=== PATIENT | male | born 1970 | race Caucasian/White ===

== ENCOUNTER 2025-03-10 10:20 | Emergency (ER) | payer MEDICAID, SELFPAY ==
[2025-03-10 10:27] VITALS: BP 136/71; PULSE 96; RESP 20; TEMP 36.8; O2SAT 96; BMI 21.3
--- NOTE | 2025-03-10 10:49 | ED.GENADULT ---
HPI - General Adult General Date Seen: 03/10/25 Chief complaint: GI Bleed Stated complaint: Rectal bleed Time Seen by Provider: 03/10/25 10:34 History of Present Illness HPI narrative: 54-year-old male presenting to the ER today with 2 week history of bloody and sticky drainage from his rectum with bowel movements. He has no old records in the [place] system. According to [facility] care link.... 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 He has not seen the [facility] clinic in a few years. He now follows with a clinic in [place] call the [facility] which manages his primary care and provides his methadone refills. He has been stable on methadone with no recent changes. He notes that he started having a little bit of rectal bleeding and purulent drainage probably a couple of months ago actually. It sounds like it was initially intermittent and not very painful and was occurring typically after bowel movements. For the past couple of weeks he has noted increased volume of slimy drainage from his rectum and sometimes also some blood-tinged drainage. He notes that he was having pain with bowel movements for a week or 2 but now has not had any BM for about 7 days. Despite that he continues to have small volume slimy and bloody discharge from his rectum. He has been putting tissues in his pants because if he does not, the fluid drains onto his underwear. 5 of he is not having any anterior abdominal pain. No fever but did have some chills a few days ago. No known rectal trauma. He has no history of any rectal surgeries or hemorrhoids. No history of Crohn's. He does recall that he had a colonoscopy done about 10 15 years ago that might have shown a colon polyp. Unclear why he had a colonoscopy at age 40. Related Data Home Medications ?Medication ?Instructions ?Recorded ?Confirmed mecobalamin (vitamin B12) .ROUTE 03/10/25 methadone .ROUTE 03/10/25 Allergies Allergy/AdvReac Type Severity Reaction Status Date / Time No Known Drug Allergies Allergy Verified 03/10/25 12:05 Exam Narrative: Exam Narrative: Constitutional: Appears well-developed and well-nourished. Alert. Conversant, but anxious and pressured speech. I think he is very embarrassed about his presenting complaint. He is otherwise very polite and cooperative.. Non toxic. HENT: Head: Atraumatic. Nose: Nose normal. Mouth/Throat: Oral mucosa is clear and moist. no trismus. Eyes: Conjunctivae normal. EOM normal. Pupils equal, round, and reactive to light. No scleral icterus. Neck: Normal range of motion. Neck supple. No tracheal deviation present. Cardiovascular: Normal rate, regular rhythm. No gallop. No friction rub. No murmur heard. Symmetric radial artery pulses Pulmonary/Chest: Effort normal. No stridor. No respiratory distress. No wheezes. No rales. No rhonchi . No tenderness. Abdominal: Soft. Bowel sounds normal. No distension. No mass. No tenderness. No rebound. No guarding. Rectal exam. Performed in the right lateral decubitus position he does have a roughly 2-3 zinc cm area of scabbed scaly skin on the left buttock that is about 4 5 cm distant from the external anus. No surrounding erythema. No drainage from that area. Unclear if this could be a scabbed healing fistula, versus pressure sore, verses other skin thickening such as malignancy. He does have a small volume of pink tinged slimy fluid around the rectal opening. This was wiped away using a tissue. Gluteal cleft looks normal. I do not see any evidence for pilonidal abscess. He does have tenderness at the external anal opening without any clear mass or abscess there. No obvious external hemorrhoid or fissure. Digital rectal exam deferred because of patient discomfort. Musculoskeletal: RUE: Normal range of motion. No tenderness. No deformity LUE: Normal range of motion. No tenderness. No deformity RLE: Normal range of motion. No edema. No tenderness. No deformity LLE: Normal range of motion. No edema. No tenderness. No deformity Lymph: No inguinal adenopathy. Neurological: Alert and oriented to person, place, and time. Normal strength. CN II-VII intact. No sensory deficit. GCS eye subscore is 4. GCS verbal subscore is 5. GCS motor subscore is 6. Normal coordination Skin: Skin is warm and dry. No rash noted. No pallor. Normal capillary refill. Psychiatric: Normal mood. Normal affect. Const: Vital Signs, click to edit/add: Vital Signs - 24 hr 03/10/25 10:27 03/10/25 13:14 03/10/25 13:15 Temperature 98.2 F Pulse Rate 71 71 Pulse Rate [Pulse Oximeter] 96 Respiratory Rate 20 Blood Pressure 113/71 Blood Pressure [Ri ght Upper Arm] 136/71 Pulse Oximetry 96 98 97 Oxygen Delivery Me thod Room Air 03/10/25 13:16 Temperature Pulse Rate 72 Pulse Rate [Pulse Oximeter] Respiratory Rate Blood Pressure 115/67 Blood Pressure [Ri ght Upper Arm] Pulse Oximetry 98 Oxygen Delivery Me thod Course Course ED Course: Recheck-back from CT. Stable. Not having too much pain but still having some ongoing drainage. Needed to change his tissue. Recheck-discussed CT findings with radiologist. They do confirm that there probably is a fistula there. Recheck-discussed with General surgery, Dr. Gamboa. She reviewed imaging and clinical presentation. She would agree with starting the patient on antibiotics and advises consultation with Colorectal surgery, either from [place] where the [facility]. She feels that rectal fistula would be best managed by colorectal surgeon. We did place a phone consult request through the a line access center to colorectal surgery. Recheck-3:00 p.m.. Patient came out of his room to ask if he could leave. 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 We have not yet been able to contact colorectal surgery to help arrange and assure follow-up. However the patient cannot waiting longer. I will provide him with the phone clinic number for the colorectal surgery office and he will call them today to arrange a follow-up visit. We also discussed his intl findings of dilated common bile duct and of pulmonary nodules. He does not currently have a primary care provider but he will call the [facility] to arrange PCP and arrange follow-up imaging with repeat chest CT in 6 months and follow-up imaging for his bile duct. Precautions for return to the ER reviewed. Vital Signs Vital signs: Initial Vital Signs Temperature 98.2 F 03/10/25 10:27 Temperature Source Temporal Artery Scan 03/10/25 10:27 Pulse Rate 96 03/10/25 10:27 Respiratory Rate 20 03/10/25 10:27 Blood Pressure 136/71 03/10/25 10:27 Blood Pressure Mean 92 03/10/25 10:27 Blood Pressure Position Sitting 03/10/25 10:27 Pulse Oximetry 96 03/10/25 10:27 Oxygen Delivery Method Room Air 03/10/25 10:27 Vital Signs Temperature 98.2 F 03/10/25 10:27 Pulse Rate 96 03/10/25 10:27 Respiratory Rate 20 03/10/25 10:27 Blood Pressure 136/71 03/10/25 10:27 Pulse Oximetry 96 03/10/25 10:27 Oxygen Delivery Method Room Air 03/10/25 10:27 Temperature 98.2 F 03/10/25 10:27 Pulse Rate 72 03/10/25 13:16 Respiratory Rate 20 03/10/25 10:27 Blood Pressure 115/67 03/10/25 13:16 Pulse Oximetry 98 03/10/25 13:16 Oxygen Delivery Method Room Air 03/10/25 10:27 Medical Decision Making MDM Narrative Medical decision making narrative: Pleasant 54-year-old gentleman presenting to the ER today with a few weeks of rectal pain and intermittent mucousy/bloody discharge from the rectum. Differential is broad including upper and lower sources of GI bleeding such as AVM, tumor, gastritis, peptic ulcer disease, variceal. On clinical presentation I am more concerned about bleeding from the perirectal area itself. I do not see any clear evidence for thrombosed external hemorrhoids or fissures. There is a small amount of bloody mucousy discharge. I am concerned that he may have a perirectal abscess or fistula, or proctitis/colitis affecting his distal colon. He is hemodynamically stable. White count is normal at 5. Hemoglobin is 13.1. With several weeks of slow drainage, I do not think is rapidly exsanguinating or that he needs to be admitted for serial hemoglobin monitoring. Platelet count is mildly low at 121. He is not anticoagulated or on any anti-platelet agents. CT imaging shows evidence suspicious for a possible perirectal fistula. Discussed with our general surgeon who recommends consultation with Colorectal surgery. Patient need leave the ER before we could complete that consult process of the a line access center. CT scan also has multiple other incidental findings. He has a dilated common bile duct up to 10 mm. He is not having any anterior or right upper abdominal pain. LFTs and lipase are reassuring. Recommend outpatient follow-up. CT also shows pulmonary nodules. Discussed with the patient. Clinical impression. O 1. Perirectal fistula 2. Dilated common bile duct 3. Pulmonary nodules Lab Data Labs: Lab Results 03/10/25 03/10/25 Range/Units 12:12 13:27 WBC 5.80 (4.50-11.00) K/uL RBC 3.74 L (4.30-5.90) m/uL Hgb 13.1 L (13.5-17.5) gm/dL Hct 38.8 (37.0-53.0) % MCV 104 H (80-100) fL MCH 35 H (26-34) pg MCHC 34 (32-36) gm/dL RDW Coeff of Bhavani 14.8 (11.5-15.5) % Plt Count 121 L (140-440) K/uL Neut % (Auto) 75.1 H (42.0-72.0) % Lymph % (Auto) 13.6 L (20-44) % [place] % (Auto) 9.7 (0.0-11.0) % Eos % (Auto) 1.4 (0.0-7.0) % Baso % (Auto) 0.0 (0.0-3.0) % Neut # (Auto) 4.40 (1.7-7.0) K/uL Lymph # (Auto) 0.80 L (0.90-2.90) K/uL [place] # (Auto) 0.60 (0.00-0.90) K/UL Eos # (Auto) 0.08 (0.00-0.50) K/uL Baso # (Auto) 0.00 (0.00-0.30) K/uL Abs Immat Gran (auto) 0.01 (0.00-0.30) K/uL Imm/Tot Granulo (auto) 0.2 % Diff Slide Review Acceptable Review (Acceptable) Sodium 139 (135-149) mmol/L Potassium 3.9 (3.6-5.1) mmol/L Chloride 104 (96-114) mmol/L Carbon Dioxide 25 (20-32) mmol/L Anion Gap 10 (7-15) mEq/L BUN 18 (7-30) mg/dL Creatinine 0.7 (0.5-1.5) mg/dL Estimated Creat Clear 139.32 Estimated GFR 110 ml/min Glucose 89 (60-115) mg/dL Lactate 2.5 H (0.5-1.9) mmol/L Calcium 8.9 (8.4-10.6) mg/dL Total Bilirubin 1.0 (0.1-1.5) mg/dL Direct Bilirubin 0.5 (0.0-0.5) mg/dL AST 44 H (12-35) U/L ALT 14 (4-50) U/L Alkaline Phosphatase 84 (40-150) U/L Total Protein 6.8 (6.0-8.3) g/dL Albumin 4.4 (3.3-5.0) g/dL Lipase 129 (23-300) U/L Imaging Data CT scan - abdomen: Attestation: I have reviewed the pertinent imaging results. My impression: I think there may be a fistula with some free air tracking from the rectum to the right gluteal cleft. Discussed with Radiology. Radiologist's impression: MPRESSION: 1. Ill-defined rectal wall thickening with moderate fat stranding surrounding the rectum. Findings may represent proctitis, though underlying mass lesion can not be excluded. Consider endoscopy for further evaluation when clinically appropriate. 2. [id number]-uuhsevot intra and extrahepatic biliary ductal dilation with the common bile duct measuring up to 1.0 centimeter. Consider correlation with bilirubin levels and further evaluation by MRCP. 3. Right-sided pulmonary nodules measuring up to 6 millimeter. Consensus guidelines for incidentally detected lung nodule(s) 6 mm or greater on incomplete thoracic CT, not applicable if known malignancy or immunocompromise: Low risk, nodule 6-8 mm: CT at 6-12 months, then consider CT at 18-24 months if stable. High risk, nodule 6-8 mm: CT at 6-12 months, then CT at 18-24 months if stable. Nodule greater than 8 mm: Further evaluation with full chest CT. (Davon, et al. Radiology 2017) 4. Mildly enlarged spleen. ----- ADDENDUM ----- A small linear tract containing air is seen along the right posterolateral aspect of the perirectal soft tissues with surrounding fat stranding. This may represent a fistula. Consider correlation with physical examination. Findings discussed with Dr. Dick Ward at 1:26 p.m. on 03/10/2025. Discharge Plan Discharge Clinical Impression: Rectal fistula, Common bile duct dilation, Incidental pulmonary nodule Patient Disposition: Home, Self-Care Condition: Stable Instructions: Anorectal Abscess and Anal Fistula (ED), Pulmonary Nodules (ED) Additional Instructions: Thank you for coming to the ER today. Light your lab work looks reassuring. No signs of major blood loss. Your CT scan and exam suggest that you probably have a problem called a ?fistula? next 2 your anus. It is very important for you to follow-up with the colorectal surgeons. Unfortunately we have not been able to make contact with the colorectal surgeons for you in the time you have spent here in the ER. Although I have not been able to set up a direct referral for you, you can call the [facility] phone number at [phone] today to schedule an ER follow-up visit with any of the colorectal surgeons. They have offices in [facility]. If you notice increasing pain, worsening drainage or bleeding, fever, or other new symptoms, come back to the ER right away. On your CT scan we see 2 other important findings. It is important for you to get a checkup with a regular primary care provider and arrange follow-up testing. 1. You have a few small spots in your lungs. Ask your primary care provider to arrange a follow-up chest CT in 6 months. If you smoke, stop smoking. 2. The bile duct draining bile out of your liver is a little bit wider than normal. The cause of this is not clear today. Please follow-up with your regular doctor to arrange further testing. If you need a new primary care provider, you can call the [facility] at [phone], to establish an appointment for primary care. Prescriptions: No Action methadone .ROUTE mecobalamin (vitamin B12) .ROUTE Follow Up/Referrals: Provider,Not a Local [Primary Care Provider, Family Practice] Stand Alone Forms: [employer] Info Instructions
--- NOTE | 2025-03-10 11:05 | CRLHL7_ITS ---
For Patients: As a result of the 21st Century Cures Act, medical imaging exams and procedure reports are released immediately into your electronic medical record. You may view this report before your referring provider. If you have questions, please contact your health care provider. INDICATION: RECTAL PAIN, Bloody MUCOUSY DRAINAGE, POSSIBLE ABSCESS TECHNIQUE: CT of the abdomen and pelvis was obtained with 89 mL of Isovue 370 intravenous contrast. Please note that all CT scans at this facility use dose modulation, iterative reconstruction, and/or weight-based dosing when appropriate to reduce radiation dose to as low as reasonably achievable. COMPARISON: None. FINDINGS: Lower thorax: 5 millimeter right middle lobe pulmonary nodule (3/12). 6 millimeter right major fissure perifissural nodule (3/13). 5 millimeter right lower lobe pulmonary nodule (3/1). Liver and biliary tree: [id number] intra and extrahepatic biliary ductal dilation with the common bile duct measuring up to 1.0 centimeter (4/52). Gallbladder: Normal. Spleen: Mildly enlarged measuring 13.1 centimeter (2/38). Pancreas: Normal. Adrenal glands: Normal. Kidneys and ureters: No hydronephrosis or obstructing renal calculi. Subcentimeter hypoattenuating lesions are too small to characterize and are favored to represent cysts. Gastrointestinal tract: Ill-defined rectal wall thickening. Moderate stool burden is seen throughout the colon. No evidence of acute appendicitis. No evidence of bowel obstruction. Peritoneal cavity: Moderate fat stranding is seen surrounding the rectum. Bladder: Moderately distended. Pelvic organs: Normal. Vasculature: Mild calcification. Lymph nodes: Normal. Abdominal wall: Trace fat containing periumbilical hernia. Musculoskeletal: Mild degenerative changes of the visualized spine and of the bilateral hips. L2 vertebral body hemangioma. IMPRESSION: 1. Ill-defined rectal wall thickening with moderate fat stranding surrounding the rectum. Findings may represent proctitis, though underlying mass lesion can not be excluded. Consider endoscopy for further evaluation when clinically appropriate. 2. Babv-nl-[id number] intra and extrahepatic biliary ductal dilation with the common bile duct measuring up to 1.0 centimeter. Consider correlation with bilirubin levels and further evaluation by MRCP. 3. Right-sided pulmonary nodules measuring up to 6 millimeter. Consensus guidelines for incidentally detected lung nodule(s) 6 mm or greater on incomplete thoracic CT, not applicable if known malignancy or immunocompromise: Low risk, nodule 6-8 mm: CT at 6-12 months, then consider CT at 18-24 months if stable. High risk, nodule 6-8 mm: CT at 6-12 months, then CT at 18-24 months if stable. Nodule greater than 8 mm: Further evaluation with full chest CT. (Davon, et al. Radiology 2017) 4. Mildly enlarged spleen. Please note that all CT scans at this facility use dose modulation, iterative reconstruction, and/or weight-based dosing when appropriate to reduce radiation dose to as low as reasonably achievable. Dictated by Hernandez Jacome MD @ 03/10/2025 12:19:02 PM (Electronically Signed)
--- OUTSIDE RECORDS SUMMARY | 2025-03-10 11:32 | XMS_ITS | Clinical Summary ---
Author Organization [place] Address [facility] [place] [address] Care Team Providers Care Solar Sales Estimator Name Role Phone Billy Mae MD Primary Care Provider [phone] Allergies No known active allergies Medications methadone (DOLPHINE-INTEN YAIR) 10 mg/mL CONC Take 96 mg by mouth daily Had dose at home the am of 12/26/11. Usually takes at about 0500 in the am. Verified dose with Arianna [facility] in [place], [phone]. 4 Active ORDER FOR DMEIndications: Stasis dermatitis of both legs Equipment being ordered: compression stockings 20-30 mm H20 pressure bilateral 1 Units 0 4 Active Additional Information Patient not taking.Reported on 11/06/2017 nicotine polacrilex (EQL NICOTINE POLACRILEX) 4 MG gumIndications: Tobacco use disorder Place 1 each (4 mg) inside cheek as needed for smoking cessation 270 tablet 1 6 Active LORazepam (ATIVAN) 0.5 MG tabletIndicatio ns:Acute hemolytic anemia (H) Take 1 tablet (0.5 mg) by mouth every 8 hours as needed for anxiety 7 tablet 0 6 Active cyanocobalamin (VITAMIN B-12) 1000 MCG tablet Take 1,000 mcg by mouth daily Active triamcinolone (KENALOG) 0.1 % cream Apply topically 2 times daily as needed (legs) Active SUMAtriptan (IMITREX) 100 MG tablet Take 100 mg by mouth at onset of headache for migraine May repeat in 2 hours if needed: max 2/day; Active folic acid (FOLVITE) 1 MG tabletIndicatio ns:Acute hemolytic anemia (H) Take 1 tablet (1 mg) by mouth 2 times daily 60 tablet 7 Active order for DMEIndications: Right wrist drop Equipment being ordered: wrist splint 1 Device 8 Active Acetaminophen (TYLENOL) 325 MG CAPSIndications :Acute hemolytic anemia (H) Take 650 mg by mouth every 4 hours as needed 0 Active Active Problems Problem Noted Date Diagnosed Date Pancytopenia 01/31/2017 Anemia 01/05/2016 Tobacco use disorder 11/22/2015 Cellulitis and abscess of leg 11/15/2015 Moderate major depression 10/16/2012 Anxiety 10/16/2012 Migraine headache 07/31/2012 Lateral epicondylitis 07/31/2012 Tubular adenoma of colon 06/04/2012 Family history of coronary artery disease 2011 Pernicious anemia 01/03/2012 Acute hemolytic anemia 01/03/2012 Narcotic abuse 11/06/2011 Hyperlipidemia LDL goal <160 11/06/2011 Resolved Problems Problem Noted Date Diagnosed Date Resolved Date Pain of right upper extremity 11/18/2017 09/02/2018 Lesion of right radial nerve 11/18/2017 09/02/2018 Health Chcf 01/14/2012 09/22/2023 Overview (07/28/2012): EMERGENCY CARE PLAN Presenting Problem Signs and Symptoms Treatment Plan Questions or conerns during clinic hours I will call the clinic directly Questions or conerns outside clinic hours I will call the 24 hour nurse line at [phone] Patient needs to schedule an appointment I will call the 24 hour scheduling team at [phone] or clinic directly Same day treatment I will call the clinic first, nurse line if after hours, urgent care and express care if needed Patient Care Plan Emergency Treatment Plan Has the Patient been seen in the ED 4 or more times in the last 12 months : No Recent Treatments: Please review Epic for recent treatments Patient/PCP Contract: None Patient Acknowledgement of Plan of Care: Yes Health long term/care coordination was discussed with the patient and he/she agrees to participate in care coordination. The patient was introduced to the healthcare account manager and given a patient packet to review and complete. The healthcare account manager will contact the patient to start care planning process. Care coordination start date: 01/14/12, ended as of 07/28/12. Frequency of care coordination with care team: Every 1-2 months. Lead Producer Name Contact information for updates to this care plan: 1. Lead Producer Jonh Linder RN Fax # This care plan was discussed and reviewed with Mohit Ayers Jr. on 01/14/12. Provider: Dr. Bird Lead Producer: Jonh Linder RN SELF MANAGEMENT PLAN Presenting Problem Signs and Symptoms Treatment Plan anemia weakness call Dr. Bird to see if she can see you within a few days. If unable to see you and symptoms persist, follow up in ER. Advanced Care Directives: not on file Action Plans on File: none Short and Chcf Goals Goals/Issues My Action Plan Person Responsible Time Frame/Date Completed Regular monitoring of labs Pt to report to clinic for lab draws as scheduled Alfonso ongoing HTN, anemia Pt to take medications as ordered Alfonso daily smoking Pt cutting down on number of cigarettes smoked. Alfonso ongoing Mohit Ayers Jr. Med Rec #: [id number] Health Insurance/Plan:[facility] [employer] : 1970 Primary Care Provider: Alessandra Bird Date form completed: 12/30/2011 Primary Ethnic Culture: Afghan Primary Language: Montenegrin Self Propelled Dredge Operator needed? No Language: Montenegrin Preferred Mode of Communication: Phone Preferred Method of Communication: verbal Health Chcf Complexity Tier: Contact Information: Mother's Name: Data Unavailable Father's Name: Data Unavailable (home) [phone] (work) Preferred Contact Address: [address] [address] [address] Siblings/Relatives: Lives with: My Multidisciplinary Care Team Members Specialty of Care Solar Sales Estimator Name, Clinic, Address, Phone #, Fax #, E-mail Primary care provider: Alessandra Bird [facility] [phone] Dr. Nelson, Hematology [place] [facility] [phone] Care Givers:None as of 01/14/12 Type of Manager Software Phone/Fax E-mail SUPERVISOR TOWER: Home Health Agency:[facility] Care Nurse Name: Implementation Architect: Guardian: Persons You Can Contact About Me and My Medical Care Name Relation Phone/Fax E-mail JADA Date This care plan is a documentation of the individual s care as directed by the family, educators, therapists and diverse medical providers. Contributors to the care plan include the patient, the patient s family and Alessandra Bird and the health long term team at [facility]. Please indicate any changes made to the care of this patient on this care plan and fax it to the healthcare account manager above. Thank you for your attention. Patient: Mohit Ayers Jr. PelonAlessandra Loretta January 14, 2012 DX V65.8 REPLACED WITH [id number] [facility] (07/13/2012) Hepatitis C 01/03/2012 11/22/2015 Smoker 11/06/2011 10/07/2013 Headache 11/06/2011 10/18/2013 Overview (01/06/2015): Problem list name updated by automated process. Provider to review Immunizations Immunization Administration Dates Next Due HEPA 04/15/2005,08/27/2004 HepB 04/15/2005,09/28/2004,08/27/2004 TDAP (Adacel,Boostrix) 08/06/2010 Family History Medical History Relation Comments Heart Disease Father heart attack at age 63 Depression Mother Rheumatoid Arthritis Mother from [facility] issues, had ra Family History Negative Sister 3 4 Thyroid Disease Sister 4 one sister Alcohol/Drug Sister 5 one with alcohol ism Breast Cancer No family hx of Cancer - colorectal No family hx of Prostate Cancer No family hx of Relation Status Comments Father Alive Maternal Grandfather Maternal Grandmother Mother Paternal Grandfather Paternal Grandmother Sister 1 Alive 2 Sister 2 Alive 2 half sisters Sister 3 Sister 4 Sister 5 Social History Tobacco Use Types Packs/Day Years Used Date Smoking Tobacco: Some Days Cigarettes Cigars Smokeless Tobacco: Never Tobacco Cessation:Ready to Q uit: No; Counseling Given: No Comments:Smoking 4-6 niles Alcohol Use Standard Drinks/Week Comments No 0 (1 standard drink = 0.6 oz pur e alcohol) PHQ-2 Answer Date Recorded PHQ-2 Score 0 11/06/2017 Adolescent Education Answer Date Record ed Getting School Help Needed Not on file 01/05 Sex and Gender Information Value Date Recorded Sex Assigned at Not on file Legal Sex 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 Gender Identity Not on file Sexual Orientation Not on file Last Filed Vital Signs Vital Sign Reading Time Taken Comments Blood Pressure 109/53 07/30/2019 7:38 AM CDT Pulse 95 07/30/2019 7:38 AM CDT Temperature 36.2 C (97.1 F) 07/30/2019 7:38 AM CDT Respiratory Rate 16 07/30/2019 7:38 AM CDT Oxygen Saturation 97% 07/30/2019 7:38 AM CDT Inhaled Oxygen Concentration - - Weight 89.5 kg (197 lb 6.4 oz) 07/28/2019 10:40 AM CDT Height 195.6 cm (6' 5) 07/28/2019 10:40 AM CDT Body Mass Index 23.41 07/28/2019 10:40 AM CDT Plan of Treatment Not on file Advance Directives For more information, please contact: [phone] * Full Code (Latest Code Status on File) Date Activated Date Inactivated Comments 07/30/2019 10:28 AM Question Answer Comments Code status determined by: Discussion with patie nt/legal decision maker * Full Code Date Activated Date Inactivated Comments 07/28/2019 10:42 AM 07/30/2019 10:28 AM Question Answer Comments Code status determined by: Discussion with patie nt/legal decision maker * Full Code Date Activated Date Inactivated Comments 02/02/2017 8:22 AM 07/28/2019 6:19 AM * Full Code Date Activated Date Inactivated Comments 01/31/2017 1:45 PM 02/02/2017 8:22 AM * Full Code Date Activated Date Inactivated Comments 01/10/2016 11:47 AM 01/31/2017 1:45 PM Care Teams Solar Sales Estimator Relationship Specialty [place] [address] [place] [address] PCP - General Family Practice 12/07/14
--- OUTSIDE RECORDS SUMMARY | 2025-03-10 11:33 | XMS_ITS | Clinical Summary ---
Author Organization [facility] Address [address] [place] [address] Care Team Providers Care Knife Cutter Name Role Phone Regine Umana Primary Care Provider [phone] Allergies Active Allergy Reactions Criticality Noted Date Comments Blood-Group Specific Substance Other - Describe In Comment Field 12/08/2018 Patient has a suggestive warm auto-antibody, anti-Jkb and nonspecific antibodies. Blood products may be delayed. Draw patient 24 hours prior to transfusion. Draw one red top and two purple top tubes for all type and screen orders. Medications METHADONE HCL (METHADONE ORAL) Take 96 mg by mouth once daily. Active cyanocobalamin 1,[address] 1,000 mcg under the tongue once daily. Active SUMAtriptan (IMITREX) 50 mg tablet Take 50 mg by mouth 2 times daily if needed for Migraine. Give at minimum 2hrs apart. Max Dose: 200mg per 24hrs. 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 His pancytopenia and severe anemia in 2011 was considered multifactorial in etiology, including hepatitis C, marked splenomegaly, vitamin B12 deficiency, and hemolytic anemia; the hemolytic anemia was thought to be related to delayed transfusion reaction to anti-JK(b) antibodies with or without autoimmune hemolysis. During his hospitalization in 2011, he responded well to steroids with normalization of his hemoglobin over the next few years. He then developed recurrent hemolytic anemia 01/2016 presenting with progressive weakness and headache. He was started on po prednisone 80 mg daily and his hemoglobin again improved. He was then tapered off the prednisone with no recurrent issues until 2017 when he had similar presentation and good response to steroids Hyperlipidemia LDL goal <160 11/06/2011 Family History Medical History Relation Name Comments Heart Disease Father Drug Abuse Mother Peripheral vascular disease Mother Mental illness Sister 1 Thyroid Disease Sister 2 Relation Name Status Comments Father Alive Mother Sister 1 Alive Sister 2 Alive Social History Tobacco Use Types Packs/Day Years Used Date Smoking Tobacco: Every Day Cigars Alcohol Use Standard Drinks/Week Comments No 0 (1 standard drink = 0.6 oz pur e alcohol) Sex and Gender Information Value Date Recorded Sex Assigned at Not on file Legal Sex Male 6:41 AM TRY OUT PERSON Gender Identity Not on file Sexual Orientation Not on file Obstetrics History Last Filed Vital Signs Vital Sign Reading Time Taken Comments Blood Pressure 111/55 12/10/2018 12:24 PM CDT Pulse 85 12/10/2018 12:24 PM CDT Temperature 36.9 C (98.4 F) 12/10/2018 12:24 PM CDT Respiratory Rate 16 12/10/2018 12:24 PM CDT Oxygen Saturation 97% 12/10/2018 12:24 PM CDT Inhaled Oxygen Concentration - - Weight 80.8 kg (178 lb 1.6 oz) 12/10/2018 5:57 A M CDT Height 198.1 cm (6' 6) 12/07/2018 8:05 AM CDT Body Mass Index 20.58 12/07/2018 8:05 AM CDT Plan of Treatment Health Maintenance Due Date Last Done Comments Tetanus booster 1981 Depression screening for age 12+ 1982 HIV for age 15-65 1985 BMI (ht and wt on same day) for age 18+ 1988 Hepatitis B series for 19+ ( 1 of 3 - 19+ 3-dose series) 1989 Colonoscopy through age 75 08/05/2015 Lipids for age 45-75 08/05/2015 Pneumococcal series for age 50+ (1 of 1 - PCV) 021 Zoster (shingles) series for age 50+ (1 of 2) 08/05/19 21 COVID-19 vaccine series ( - 2024- season) 5 Influenza Vaccine (#1) 2024 RSV vaccine for adults or pr egnancy (1 - 1-dose 75+ series) 2045 Hepatitis C screening for age 18-79 Completed 05/09 Procedures Procedure Name Priority Date/Time Associated Diagnosis Comments HCV RNA QUANT Routine 05/09/2020 3:31 PM TRY OUT PERSON Autoimmune hemolytic anemia, unspecified Thrombocytopenia, unspecified (HC) Chronic viral hepatitis C (HC) Frequency of micturition Vitamin B12 deficiency anemia due to intrinsic factor deficiency from Last 3 Months or Most Recently Relevant to Health Maintenance Results * HCV RNA QUANT (05/09/2020 3:31 PM TRY OUT PERSON) HCV RNA RT-PCR HCV RNA not detected HCV RNA not detected IU/mL 05/11/2020 4:36 PM TRY OUT PERSON [facility] Blood BLOOD SPECIMEN / Unknown 05/09/2020 3:31 PM TRY OUT PERSON 05/09/2020 6:21 PM TRY OUT PERSON Narrative [facility] - 05/11/2020 4:36 PM TRY OUT PERSON Method: Jerrod HCV Test Pierre Martinez MD SEND OUTS Final Result [facility] [address] [place] [address], [place] from Last 3 Months or Most Recently Relevant to Health Maintenance Insurance [facility] * Guarantor: LIANA WONG Account Type Relation to Patient Date of Phone Billing Address [facility] [birth year][address] [place] [id number] ATTN A/P [address] [address] [place] [address] Advance Directives * Full Code (Latest Code Status on File) Date Activated Date Inactivated Comments 12/07/2018 9:44 AM 12/10/2018 4:58 PM Question Answer Comments Code Status Discussion: Discussed Care Teams Knife Cutter Relationship Specialty Start Date End Date [facility] [id number] [place] [id number] PCP - General 10/14/15
--- OUTSIDE RECORDS SUMMARY | 2025-03-10 11:33 | XMS_ITS | Encounter Summary ---
Author Organization [facility] Address [address] [place] [address] [place] [address] Care Team Providers Care Named Account Executive Name Role Phone Alessandra Bird Primary Care Provider [phone] Gerardo Otto MD Primary Care Provider [phone] Mary Alice Manriquez PA-C Primary Care Pr ovider Billy Mae MD Primary Care Provider [phone] Billy Mae MD Unavailable Billy Mae MD Unavailable Encounter Details Date Type Department Care Team (Late st Contact Info) Description 01/31/[address] [place] [id number] Anais Red MD [address] [place] [address] Social History Tobacco Use Types Packs/Day Years Used Date Smoking Tobacco: Some Days Cigarettes Cigars Smokeless Tobacco: Never Comments:Smoking 4-6 niles Alcohol Use Standard Drinks/Week Comments No 0 (1 standard drink = 0.6 oz pur e alcohol) Sex and Gender Information Value Date Recorded Sex Assigned at Not on file 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 Gender Identity Not on file Sexual Orientation Not on file documented as of this encounter Progress Notes * 01/31/2002 11:59 PM CSTAddended by: TIGRE CHRISTINE on: 02/08/2002,12:00 PM Modules accepted: Progress Notes Addended by: TIGRE SOSA on: 02/04/2002,1:38 PM Modules accepted: Progress Notes Addended by: COLUMBA CARDONA on : 02/04/2002,1:18 PM Modules accepted: Progress Notes 00:00 Emergency Department [facility] ANGELA JONES) [Entered: 00:00 Communications Analyst ([facility])] : 70 [address] [facility] COMPLAINT: Weak, lightheadedness, rectal and penile bleeding. HISTORY OF PRESENT ILLNESS: A [age]-year-old male, who for the past 3-4 months has had progressive symptoms of weakness and f atigue. He has noticed over the last two months that he has had occasional rectal bleeding. He noti zita today, and within in the last 1-2 days, what appears to be blood in the toilet bowel when he has been urinating. He states it is bright orange, but never red and there are no clots. He has no bloo d staining in his underwear. He denies any abdominal pain or diarrhea. He has no bleeding from the gums or unusual bruising. He denies any joint pain or swelling. The patient states he has had no ev idence of skin rashes. No exposure to known recent illnesses. He has received no immunizations. He has not seen a doctor in approximately 12 months. He has been tested for HIV status approximately on e year ago. The patient reports that this was negative. The testing was done because the patient arias s been an IV heroin user. He was committed to detox and mental health unit and subsequently has been free of using intravenous agents, but has been using alcohol on a regular basis. He denies unusual amounts of alcohol use. SOCIAL HISTORY: The patient is and employed. He does have four chi ldren, but does not have custody or access to the children. FAMILY HISTORY: Noncontributory and unr emarkable. REVIEW OF SYSTEMS: Other than as noted above, all other systems unremarkable, including no cough or history of pneumoniae. He has had no skin lesions or mouth or tongue disorders. CURRENT MEDICATIONS: None. IMMUNIZATIONS: Current. DOCUMENTED DRUG ALLERGIES: None. HABITS: Does use alcohol, does use tobacco. Denies recreational drugs or abuse of amip-odv-rdurwyw medications. PHYS ICAL EXAMINATION: A 31-year-old, ill-appearing male, appearing pale and jaundiced. Blood pressure: 133/93. Respirations: 20. Heart rate: 123. Temperature: 97.6. Room air pulse oximet ry: 100 percent. HEAD, EARS, EYES, NOSE and THROAT exam: HEAD is atraumatic, normocephalic. TMs wit h mild suffusion. NARES are patent. OROPHARYNX is unremarkable without exudate or lesions. There is no evidence if plaque. The peridentium and dentition are healthy. NECK was supple. TRACHEA midlin e. No stridor, drooling or pooling and no palpable adenopathy. No palpable thyromegaly. ABDOMEN is full, soft. Bowel sounds active. No involuntary guarding, no masses. Negative rebound. CHEST is s ymmetric, CHEST WALL is nontender. LUNG richards are clear to auscultation and resonant to percussion. Cardiovascular exam: Rate is tachycardic. Peripheral pulses equal. Capillary refill markedly del ayed. The skin is cool and dry. Mucous membranes dry. Digital RECTAL exam: PROSTATE normal. RECT AL tone normal. AMPULLA is smooth. Stool brown, guaiac negative. Neurological: Right-hand dominan t. Speech is slow. measured, slight dysarthria. Mental status is alert, interactive with no ideatio nal changes and answering questions appropriately. Cranial nerves are intact. Deep tendon reflexes symmetric. Bilateral downgoing toes. Cerebellar and sensory exam normal. Station and gait appropri ate. No visual field cuts. LABORATORY RESULTS: Hemoglobin 6.1, hematocrit 15.6, platelets 102,000, WBC 3.6, sodium 138, potassium 3.7, chloride 104, CO2 26, blood sugar 102, BUN 13, creatinine 0.7, an ion gap 9, INR 1.16, partial thromboplastin time 23. Blood alcohol level less than 0.05. Aspirin le elijah less than 1. Tylenol level less 4. Calcium 8.8, AST 141, ALT 53, alkaline phosphatase 54, serum albumin 4.5, serum total protein 7.0, direct bilirubin 1.8, unconjugated bilirubin 1.2. A 12-lead E KG: Sinus tachycardia rate of 113, normal axis, no acute changes. CLINICAL IMPRESSION: 1) Anemia; suspect subacute. 2) Hypovolemia secondary to subacute, chronic blood loss and dehydration. 3) Suspe ct malnutrition. 4) Hepatitis, rule out viral versus chemical. 5) Comorbid conditions: History of IV drug abuse and alcohol abuse. Cannot exclude the possibility of human immune deficiency disorder in evolution. EMERGENCY DEPARTMENT COURSE AND MANAGEMENT: Following admission to the Emergency Depar tment and completion of above documented exam, the patient had a fingerstick blood sugar of 133. Ort hostatic parameters were obtained. These were seen to be moderately positive. The patient was sympt omatic. An IV of normal saline was infused with a bolus of 500 cc and then subsequent rate of 200 cc an hour. He did receive an additional bolus of 500 cc and received a total volume of crystalloid 2 liters before receiving 2 units of packed red blood cells by warmer in the emergency department. Whi julisa waiting for laboratory results to be returned, the patient was noted to have a chest x-ray, PA and lateral, that was unremarkable for pulmonary infiltrates or effusions and no evidence of cardiomegal y. Prior to the patient receiving the blood transfusions, he was advised there was a small risk of d eveloping hepatitis or maribel HIV. The patient did agree to have an HIV test run. This was obt ained prior to starting the blood. Consultation with Dr. Red reaffirmed the clinical importance of obtaining an HIV screen and the patient will be admitted to the third floor where he will undergo further medical management and blood transfusions under the care of Dr. Red. CRITICAL CARE BED SIDE TIME: Forty-five minutes. [id number] _ ANGELA JONES MD 08 :55 MT: Document: [id number] [place], [place] Name: QUINN AYERS EMERGENCY ROOM ENCOUNTER Page 3 of 3 LCN: MS3 DSC: [facility] Name: MR#: : Admit Date: MOHIT AYERS [id number] 1970 01/31/2002 Doctor: ANGELA JONES MD EMERGENCY ROOM ENCOUNTER Page 1 of 3 Electronically filed by Columba Cardona 02/04/2002 1:18 PM 00:00 History And Physical-KATRINA LAMB) [Entered : 00:00 Communications Analyst ([facility])] : 70 CHIEF COMPLAINT: Weakness and tiredness. HISTORY OF PRESENT ILLNESS: Mohit Ayers is a 31-year-old white male, who came to the Emergency [facility] with complaints of feeling weak and tired for the past several weeks. A few days ago, when he stoo d up, he felt like passing out. He lives with his sister, and his sister forced him to come to the E R. The patient also says he has been noticing passing orange-colored urine and also on occasion has had some rectal bleeding. At those times, he has had hard stools and he had strained. The patient a lso admits to having lost 10 lbs in the past five months and has noticed some night sweats. There ar e no fever, chills. Appetite is good. He has used IV heroin in the past. He underwent treatment ar methadone, has been sober for one year. He has had many HIV tests in the past, which were negativ e. PAST MEDICAL ILLNESS: No hypertension, no diabetes. PAST SURGERIES: None. DRUG ALLERGIES: No ne. CURRENT MEDICATIONS: None. FAMILY HISTORY: Maternal grandmother had breast cancer. REVIEW OF SYSTEMS: GENERAL: Tiredness, weakness, loss of weight. EYES: No visual disturbances. EARS: Neg ative. CARDIOVASCULAR: Negative. RESPIRATORY: Negative. GI: Occasional rectal bleeding. : Ora nge-colored urine. No dysuria, no frequency. HEMATOLOGIC: Anemia present. MUSCULOSKELETAL: Negati ve. NEUROLOGIC: Negative. ENDOCRINE: Negative. PHYSICAL EXAMINATION: Blood pressure 124/52, puls e 91, respirations 20, temperature 98.0. Had fever in ER. HEAD: Atraumatic, normocephalic. EYES: Pupils equal, round, reactive to light. Oral mucosa is moist. No oral ulcers. NECK is supple. No lymph nodes. CARDIOVASCULAR: S1, S2, regular. RESPIRATORY: Clear to auscultation. No wheezing, no crackles. ABDOMEN: Soft, bowel sounds present. No tenderness. No organomegaly. EXTREMITIES: No edema, no calf tenderness. Peripheral pulses 2+. STEAMER TENDER: Grossly intact. SKIN: Acne-like lesions on his chin and also on the cheek. LABS: Salicylates less than 1. Acetaminophen less than 10. Ethano l 0.05. INR 1.16, which is elevated. PT is 23. CBC includes a WBC 3.6, which is on the lower side. Hemoglobin is 6.1, platelets 62, hematocrit 15.6, MCV 109, MCH 42.3. Sodium 138, potassium 3.7, BU N 13, creatinine 0.1. Bilirubin 1.8, AST 141, ALT 53. ASSESSMENT AND PLAN: 1. Pancytopenia with h emoglobin of 6.1. The patient already received two units of packed RBCs in ER. Will type and cross a nother two units of packed RBCs. Will plan to use these for hemoglobin less than 9. Get Hematology consult. 2. Weakness secondary to #1. 3. Increased AST, probably secondary to alcohol, but will a lso check hepatitis A, B, and C. ADDENDUM: After two units of blood transfusion, the hemoglobin cam e back, and it was 6.5. The patient was ordered to have another two units of packed RBCs and monitor H&H q. 8 hourly. [id number]_ KATRINA RED MD MT: Doc ument: [id number] [place], [place] Name: [facility] Page 2 of 2 LCN: MS3 DSC: [place], [place] Name: Bello R#: : Admit Date: MOHIT AYERS -31 1970 01/31/2002 Doctor: KATRINA RED MD HISTORY AND PHYSICAL Page 1 of 2 Electronically filed by Tigre Christine 02/04/2002 1:38 PM 00:00 Discharge Summary-[facility] KATRINA RED) [Entered: Transcriptio n ([facility])] : 70 PRIMARY DIAGNOSIS: Pancytopenia. SYNOPSES OF HISTORY OF PRESENT ILLNESS: T he patient is a 31-year-old white male who came to the emergency room with the complaints of weakness and tiredness which has been going on for several weeks. The patient also admits to having lost 10 pounds over a five month period. The patient has had a brief episode where he tried to stand up and felt like passing out, but he did not have a syncopal episode. On admission to the emergency room, t he patient had a hemoglobin of 6.1 with a white blood count of 3.6. Also, his platelets were low at 62. His INR was 1.16, which was slightly elevated. His AST was 141. ALT was 53. The patient's BUN and creatinine was 13 and 0.1. The patient had a chest x-ray which was negative and also had an elec trocardiogram which showed sinus tachycardia. The patient was admitted to the hospital for further m anagement of anemia. He was transfused two units of packed red blood cells in the emergency room. A fter two units of packed red blood cells his hemoglobin was 6.5. The patient was transfused another two units, and hematology/oncology consultation was taken. The patient was recommended to have a bon e marrow biopsy by the scallop raker, which the patient underwent. The patient's vitamin B12 was low at 20, and he was started on vitamin B12 injections by Dr. Nelson. Bone marrow cytogenetics are still pending at the time of discharge. The patient started feeling better. His hemoglobin came up to 9.1 . Because of his increase in AST he had a hepatitis panel done which was positive for hepatitis C an tibody. On 02/04/02 the patient was feeling well. Dr. Nelson recommended he be discharged home with h is vitamin B12 injections every day for one more week and then every week. Follow-up in Dr. Nelson's o ffice in one week. DISCHARGE INSTRUCTIONS: Activity as tolerated. Follow-up at Dr. Nelson's office i n one week. Follow-up at [facility] for vitamin B12 injections. The criminal justice social worker is zach jones to arrange to get vitamin B12 injections to the patient. The patient was also advised to follow -up with the vibrating screen operator regarding his hepatitis C. [id number]_ KATRINA RED MD D: 10:49 MT: Document: [id number] [place], [place] Name: MOHIT AYERS Please refer to the Nursing Discharge Information Sheet for mo re detailed information regarding diet, physical actvity limitations, medications and other pertinent instructions given to this patient upon discharge. DISCHARGE SUMMARY Page 2 of 2 LCN: MS3 DSC: [place], [place] Name: MR#: : Admit Date: Discharge Date: JASMYNE AYERS -31 1970 01/31/2002 Doctor: KATRINA RED MD Please refer to the [facility] Discharge Information Sheet for more detailed information regarding diet, physical activity landry itations, medications and other pertinent instructions given to this patient upon discharge. DISCHAR GE SUMMARY Page 1 of 2 Electronically filed by Tigre Christine 02/08/2002 12:00 PM documented in this encounter Plan of Treatment Not on file documented as of this encounter Visit Diagnoses Not on filedocumented in this encounter Care Teams Named Account Executive Relationship Specialty Start Date End Date Alessandra Bird MBBS PCP - General Family Practice 11/06/11 10/06/13 Gerardo Otto MD PCP - General Family Practice 10/07/13 04/12/14 Mary Alice Manriquez PA-C [address] [place] [address] PCP - General Physician Rustic Terrazzo Setter 04/13/14 12/06/14 [place] [address] [place] [address] PCP - General Family Practice 12/07/14 [place] [address] [place] [address] PCP - Assigned PCP 11/09/17 06/09/18 [place] [address] [place] [address] Assigned PCP 11/09/17 11/11/20 documented as of this encounter
[2025-03-10 12:19] LABS: Lactate* 2.5 mmol/L (0.5-1.9)
[2025-03-10 12:29] LABS: Hematocrit* 38.8 % (37.0-53.0); Hemoglobin* 13.1 gm/dL (13.5-17.5); Immature Granulocytes Abs Auto 0.01 K/uL (0.00-0.30); Immature Granulocytes Pct Auto 0.2 %; Mean Corpuscular HGB Conc 34 gm/dL (32-36); Mean Corpuscular Hemoglobin 35 pg (26-34); Mean Corpuscular Volume 104 fL (80-100); RDW Coefficient of Variation % 14.8 % (11.5-15.5); Red Blood Count* 3.74 m/uL (4.30-5.90); White Blood Count* 5.80 K/uL (4.50-11.00)
[2025-03-10 12:35] LABS: Lymphocytes Absolute Auto 0.80 K/uL (0.90-2.90); Slide Review Reflex Yes
[2025-03-10 12:36] LABS: Chloride* 104 mmol/L (96-114); Sodium* 139 mmol/L (135-149)
[2025-03-10 12:37] LABS: Potassium* 3.9 mmol/L (3.6-5.1)
[2025-03-10 12:39] LABS: Blood Urea Nitrogen* 18 mg/dL (7-30); Creatinine* 0.7 mg/dL (0.5-1.5); Est. Creatinine Clearance* 139.32; Estimated Glomerular Filt Rate 110 ml/min
[2025-03-10 12:40] LABS: Anion Gap 10 mEq/L (7-15); Calcium* 8.9 mg/dL (8.4-10.6); Carbon Dioxide* 25 mmol/L (20-32); Glucose* 89 mg/dL (60-115)
[2025-03-10 13:14] VITALS: BP 113/71; PULSE 71; O2SAT 98
[2025-03-10 13:15] VITALS: PULSE 71; O2SAT 97
[2025-03-10 13:15] LABS: Slide Review Acceptable Review (Acceptable)
[2025-03-10 13:16] VITALS: BP 115/67; PULSE 72; O2SAT 98
[2025-03-10 13:45] LABS: Albumin* 4.4 g/dL (3.3-5.0)
[2025-03-10 13:48] LABS: Alanine Aminotransferase* 14 U/L (4-50); Alkaline Phosphatase* 84 U/L (40-150); Aspartate Amino Transferase* 44 U/L (12-35); Bilirubin Direct* 0.5 mg/dL (0.0-0.5); Bilirubin Total* 1.0 mg/dL (0.1-1.5); Total Protein* 6.8 g/dL (6.0-8.3)
== END 2025-03-10 15:12 | disposition home or self-care (01) ==
PROVIDERS: Emergency Provider Emergency Medicine
DX: K60.40 Rectal fistula, unspecified (principal); R91.8 Other nonspecific abnormal finding of lung field; K83.8 Other specified diseases of biliary tract; Z79.891 Long term (current) use of opiate analgesic
CPT/HCPCS: 36415; 74177; 80048; 80076; 83605; 83690; 85025; 87045; 87046; 87427; 87493; 99284; 99285; Q9967